=== PATIENT | male | born 2000 | race Caucasian/White ===

== ENCOUNTER 2019-12-21 16:08 | Emergency (ER) | payer BC, OTHER ==
[~2019-12-21] VITALS: Ht 182.9 cm; Wt 78.6 kg
[2019-12-21] MEDS ORDERED: TETanus/Pertussis (Acell)/Diphther VAC/PF (Tdap-Adult) 0.5ml syringe IMVAC ONE (18:15)
[2019-12-21 18:45] VITALS: BP 112/72
== END 2019-12-21 18:49 | disposition home or self-care (01) ==
LOC: ER 16:09
DX: S61.215A Laceration without foreign body of left ring finger without damage to nail, initial encounter (principal); S61.235A Puncture wound without foreign body of left ring finger without damage to nail, initial encounter; Z88.1 Allergy status to other antibiotic agents; Z88.8 Allergy status to other drugs, medicaments and biological substances; W29.4XXA Contact with nail gun, initial encounter; Y93.89 Activity, other specified; Y92.89 Other specified places as the place of occurrence of the external cause; Y99.8 Other external cause status
CPT/HCPCS: 73130; 90471; 90715; 99283

== ENCOUNTER 2020-01-01 15:30 | Inpatient (IN) | payer OTHER ==
[~2020-01-01] VITALS: Ht 185.4 cm; Wt 78.6 kg
[2020-01-01] MEDS ORDERED: cefTAZidime inj 2 GM in normal saline 100ml IV soln 100 ML IV ONE (16:05)
[2020-01-01] MEDS ORDERED: NO HOME MEDS (16:21)
[2020-01-01] MEDS ORDERED: vancomycin/NS 1 GM ADD-VANTAGE 250 ML X 1 DOSE IV ONE (16:25)
[2020-01-01] MEDS ORDERED: cefepime 1GM in D5W 50mL 50 ML IV SCH (18:25)
[2020-01-01] MEDS ORDERED: magnesium 4gm in 100ml NS 100 ML IV PRN (18:25)
[2020-01-01] MEDS ORDERED: magnesium 2GM in 50ml NS 50 ML IV PRN (18:25)
[2020-01-01] MEDS ORDERED: potassium Cl 20 mEq SR tablet PO PRN ×2 (18:25)
[2020-01-01] MEDS ORDERED: magnesium Cl slow-release 64mg tablet PO PRN (18:25)
[2020-01-01] MEDS ORDERED: morphine 2 MG/ML inj. syringe IV PRN ×2 (18:25)
[2020-01-01] MEDS ORDERED: ondansetron/PF 4mg/2ml inj IV PRN (18:25)
[2020-01-01] MEDS ORDERED: acetaminophen 650mg rectal suppository RC PRN (18:25)
[2020-01-01] MEDS ORDERED: mag hydrox/Alum hydrox/simeth 30ml oral suspension PO PRN (18:25)
[2020-01-01] MEDS ORDERED: diphenhydrAMINE 25mg capsule PO PRN (18:25)
[2020-01-01] MEDS ORDERED: HYDROcodone/acetaminophen 5mg/325mg tablet PO PRN (18:25)
[2020-01-01] MEDS ORDERED: acetaminophen 325mg tablet PO PRN ×2 (18:25)
[2020-01-01] MEDS ORDERED: HYDROcodone/acetaminophen 10/325mg tab PO PRN (18:25)
[2020-01-01] MEDS ORDERED: potassium CL 10mEq/100ml bag 100 ML IV PRN ×2 (18:25)
[2020-01-01] MEDS ORDERED: magnesium hydroxide 30ml (MOM) UD suspension PO PRN (18:25)
[2020-01-01 18:52] LABS: BASOPHILS % (AUTO) 0.3 % (0-1); EOSINOPHILS # (AUTO) 0.1 X10'3 (0-0.9); EOSINOPHILS % (AUTO) 0.7 % (0-6); HEMATOCRIT 46.4 % (42.0-52.0); LYMPHOCYTES % (AUTO) 18.9 % (21-51); MEAN CORPUSCULAR HEMOGLOBIN 27.2 PG (27.0-31.0); MEAN CORPUSCULAR HGB CONC 34.4 g/dL (33.0-36.5); MONOCYTES # (AUTO) 0.8 X10'3 (0-0.9); MONOCYTES % (AUTO) 7.6 % (2-12); NEUTROPHILS # (AUTO) 7.8 X10'3 (1.8-7.7); NEUTROPHILS % (AUTO) 72.5 % (42-75); PLATELET COUNT 239 X10'3 (140-440); RED BLOOD COUNT 5.88 X10'6 (4.70-6.10); RED CELL DISTRIBUTION WIDTH 13.3 % (11.5-14.5); WHITE BLOOD COUNT 10.7 X10'3 (4.5-11.0)
--- NOTE | 2020-01-01 18:55 | NUR ---
Patient in room [facility] 4015. I have received report from Gustavo DE LA ROSA and had the opportunity to ask questions and assume patient care.
[2020-01-01] MEDS ORDERED: cefepime 1GM/NS ADD-VANTAGE 100 ML IV SCH (18:59)
[2020-01-01 19:00] VITALS: BP 143/83
[2020-01-01 19:04] LABS: HEMOGLOBIN A1C 5.3 % (4.5-6.2)
[2020-01-01 19:08] LABS: ALANINE AMINOTRANSFERASE 18 U/L (12-78); ALBUMIN 4.5 G/DL (3.4-5.0); ALBUMIN/GLOBULIN RATIO 1.2 (1.1-1.5); ALKALINE PHOSPHATASE 119 IU/L (20-180); ANION GAP 8 (8-16); ASPARTATE AMINO TRANSFERASE 11 U/L (10-37); BILIRUBIN,TOTAL 0.8 MG/DL (0.1-1.0); BLOOD UREA NITROGEN 12 MG/DL (7-18); BUN/CREATININE RATIO 12.5 (5.4-32.0); CALCIUM 8.9 MG/DL (8.5-10.1); CHLORIDE 103 MMOL/L (99-107); CREATININE 0.96 MG/DL (0.60-1.10); GLUCOSE 97 MG/DL (70-104); MAGNESIUM 2.1 MG/DL (1.5-2.4); POTASSIUM 3.6 MMOL/L (3.5-5.1); SODIUM 138 MMOL/L (135-145); TOTAL CARBON DIOXIDE 27.1 MMOL/L (24-32); TOTAL PROTEIN 8.4 G/DL (6.4-8.2); eGFR > 90 ML/MIN
--- NOTE | 2020-01-01 19:23 | NUR ---
not giving vanco, it was administered already in ER.
[2020-01-01] MEDS: normal saline 1000ml 1,000 ML IV SCH (19:54)
[2020-01-01] MEDS: heparin, porcine 5000 units/ml vial SQ SCH (20:00)
[2020-01-01] MEDS: K and/or MAG REPLACEMENT MC SCH (20:00)
[2020-01-01 22:00] VITALS: BP 115/72
[2020-01-02] MEDS: vancomycin/NS 1 GM ADD-VANTAGE 250 ML IV SCH ×3 (00:23→15:38)
[2020-01-02 01:03] LABS: URINE AMPHETAMINE SCREEN NEGATIVE (Neg); URINE BARBITUATE SCREEN NEGATIVE (Neg); URINE BENZODIAZEPINES SCREEN NEGATIVE (Neg); URINE CANNABINOID SCREEN NEGATIVE (Neg); URINE COCAINE SCREEN NEGATIVE (Neg); URINE METHADONE SCREEN NEGATIVE (Neg); URINE OPIATE SCREEN NEGATIVE (Neg); URINE PHENCYCLIDINE SCREEN NEGATIVE (Neg)
[2020-01-02 01:52] LABS: CLARITY,URINE CLEAR (Clear); COLOR,URINE YELLOW (Yellow); GLUCOSE, URINE NEGATIVE (Neg); KETONES,URINE NEGATIVE (Neg); LEUKOCYTE ESTERASE ,URINE NEGATIVE (Neg); NITRITES, URINE NEGATIVE (Neg); OCCULT BLOOD,URINE NEGATIVE (Neg); PROTEIN,URINE NEGATIVE (Neg); UROBILINOGEN,URINE 0.2 E.U/dL (0.2-1.0)
[2020-01-02 01:53] LABS: UA COLLECTION TYPE CLN CATCH MIDSTREAM
[2020-01-02] MEDS: cefepime 1GM/NS ADD-VANTAGE 100 ML IV SCH ×3 (02:02→17:44)
[2020-01-02 06:00] VITALS: BP 121/77
--- NOTE | 2020-01-02 06:15 | NUR ---
received report from jah caldera
--- NOTE | 2020-01-02 06:25 | NUR ---
Problems reprioritized. Patient report given, questions answered & plan of care reviewed with DAVID DE LA ROSA.
[2020-01-02 06:34] LABS: BASOPHILS % (AUTO) 0.3 % (0-1); EOSINOPHILS # (AUTO) 0.1 X10'3 (0-0.9); EOSINOPHILS % (AUTO) 1.4 % (0-6); HEMATOCRIT 40.8 % (42.0-52.0); LYMPHOCYTES # (AUTO) 1.5 X10'3 (1.1-4.8); LYMPHOCYTES % (AUTO) 22.8 % (21-51); MEAN CORPUSCULAR HEMOGLOBIN 27.1 PG (27.0-31.0); MEAN CORPUSCULAR HGB CONC 34.3 g/dL (33.0-36.5); MEAN PLATELET VOLUME 7.3 FL (7.4-10.4); MONOCYTES # (AUTO) 0.6 X10'3 (0-0.9); MONOCYTES % (AUTO) 9.1 % (2-12); NEUTROPHILS # (AUTO) 4.4 X10'3 (1.8-7.7); NEUTROPHILS % (AUTO) 66.4 % (42-75); PLATELET COUNT 201 X10'3 (140-440); RED BLOOD COUNT 5.17 X10'6 (4.70-6.10); WHITE BLOOD COUNT 6.7 X10'3 (4.5-11.0)
[2020-01-02 06:44] LABS: ALANINE AMINOTRANSFERASE 20 U/L (12-78); ALBUMIN 3.6 G/DL (3.4-5.0); ALBUMIN/GLOBULIN RATIO 1.1 (1.1-1.5); ALKALINE PHOSPHATASE 94 IU/L (20-180); ANION GAP 7 (8-16); ASPARTATE AMINO TRANSFERASE 20 U/L (10-37); BILIRUBIN,TOTAL 0.8 MG/DL (0.1-1.0); BLOOD UREA NITROGEN 11 MG/DL (7-18); BUN/CREATININE RATIO 11.8 (5.4-32.0); CALCIUM 9.3 MG/DL (8.5-10.1); CHLORIDE 106 MMOL/L (99-107); CHOL/HDL RATIO 4.5 (0.00-4.99); CHOLESTEROL 192 MG/DL (0-200); CREATININE 0.93 MG/DL (0.60-1.10); GLUCOSE 102 MG/DL (70-104); HDL CHOLESTEROL 43 MG/DL (35-60); LDL CHOLESTEROL 144 MG/DL (50-100); PHOSPHORUS 3.4 MG/DL (2.3-4.5); POTASSIUM 4.3 MMOL/L (3.5-5.1); SODIUM 139 MMOL/L (135-145); TOTAL CARBON DIOXIDE 26.5 MMOL/L (24-32); TOTAL PROTEIN 6.9 G/DL (6.4-8.2); TRIGLYCERIDES 61 MG/DL (20-135); eGFR > 90 ML/MIN
[2020-01-02] MEDS: K and/or MAG REPLACEMENT MC SCH ×2 (06:55→20:00)
[2020-01-02] MEDS: heparin, porcine 5000 units/ml vial SQ SCH ×2 (07:06→20:00)
[2020-01-02] MEDS: normal saline 1000ml 1,000 ML IV SCH ×2 (07:11→19:18)
[2020-01-02 10:00] VITALS: BP 124/56
--- NOTE | 2020-01-02 11:23 | NUR ---
Student documentation: I have reviewed all interventions, assessments performed and documented by Jac Castrejon
[2020-01-02] MEDS ORDERED: GADOTERATE MEGLUMINE 7.5 MMOL/15 ML VIAL IV ONE (12:02)
[2020-01-02 15:19] VITALS: BP 122/72
[2020-01-02] MEDS ORDERED: VANCOMYCIN LEVEL IV ONE (15:30)
--- NOTE | 2020-01-02 15:48 | NUR ---
Student documentation: I have reviewed assessments performed and documented by Amador PHAN [facility].
[2020-01-02 18:00] VITALS: BP 127/53
--- NOTE | 2020-01-02 18:05 | NUR ---
GAVE REPORT TO ESTRELLA ROGERS
[2020-01-02] MEDS: lactobacillus rhamnosus 10,000 MMU CELLS/CAPSULE PO SCH (20:21)
[2020-01-02 22:00] VITALS: BP 94/58
[2020-01-03] MEDS: vancomycin/NS 1 GM ADD-VANTAGE 250 ML IV SCH (00:15)
[2020-01-03] MEDS: normal saline 1000ml 1,000 ML IV SCH ×3 (00:21→19:50)
[2020-01-03] MEDS: cefepime 1GM/NS ADD-VANTAGE 100 ML IV SCH ×3 (02:12→19:42)
[2020-01-03 06:00] VITALS: BP 144/60
[2020-01-03 07:03] LABS: BASOPHILS % (AUTO) 0.6 % (0-1); EOSINOPHILS # (AUTO) 0.1 X10'3 (0-0.9); EOSINOPHILS % (AUTO) 1.4 % (0-6); HEMATOCRIT 40.9 % (42.0-52.0); HEMOGLOBIN 13.9 g/dl (14.0-17.9); LYMPHOCYTES # (AUTO) 1.6 X10'3 (1.1-4.8); LYMPHOCYTES % (AUTO) 25.6 % (21-51); MEAN CORPUSCULAR HEMOGLOBIN 26.9 PG (27.0-31.0); MEAN CORPUSCULAR HGB CONC 33.9 g/dL (33.0-36.5); MEAN CORPUSCULAR VOLUME 79.5 FL (78-98); MEAN PLATELET VOLUME 7.4 FL (7.4-10.4); MONOCYTES # (AUTO) 0.5 X10'3 (0-0.9); MONOCYTES % (AUTO) 8.5 % (2-12); NEUTROPHILS % (AUTO) 63.9 % (42-75); PLATELET COUNT 195 X10'3 (140-440); RED BLOOD COUNT 5.14 X10'6 (4.70-6.10); RED CELL DISTRIBUTION WIDTH 13.2 % (11.5-14.5); WHITE BLOOD COUNT 6.2 X10'3 (4.5-11.0)
[2020-01-03 07:19] LABS: ALANINE AMINOTRANSFERASE 16 U/L (12-78); ALBUMIN 3.6 G/DL (3.4-5.0); ALKALINE PHOSPHATASE 91 IU/L (20-180); ANION GAP 3 (8-16); ASPARTATE AMINO TRANSFERASE 8 U/L (10-37); BILIRUBIN,TOTAL 0.5 MG/DL (0.1-1.0); BLOOD UREA NITROGEN 11 MG/DL (7-18); BUN/CREATININE RATIO 11.5 (5.4-32.0); CALCIUM 8.8 MG/DL (8.5-10.1); CHLORIDE 106 MMOL/L (99-107); CREATININE 0.96 MG/DL (0.60-1.10); GLUCOSE 100 MG/DL (70-104); PHOSPHORUS 3.3 MG/DL (2.3-4.5); POTASSIUM 4.1 MMOL/L (3.5-5.1); SODIUM 138 MMOL/L (135-145); TOTAL CARBON DIOXIDE 28.8 MMOL/L (24-32); TOTAL PROTEIN 7.1 G/DL (6.4-8.2); eGFR > 90 ML/MIN
[2020-01-03] MEDS: K and/or MAG REPLACEMENT MC SCH ×2 (08:00→20:00)
[2020-01-03] MEDS: heparin, porcine 5000 units/ml vial SQ SCH ×2 (08:00→19:47)
[2020-01-03] MEDS: lactobacillus rhamnosus 10,000 MMU CELLS/CAPSULE PO SCH ×2 (09:04→19:42)
[2020-01-03] MEDS: VANCOmycin 1250MG/NS 250ml Bag 250 ML IV SCH ×2 (09:04→17:04)
[2020-01-03 10:00] VITALS: BP 125/51
[2020-01-03] MEDS ORDERED: LINE600T12 PO (10:11)
[2020-01-03] MEDS ORDERED: LACT1CAP26 PO (10:11)
--- NOTE | 2020-01-03 15:23 | NUR ---
Discharge home today has been cancelled secondary to difficulty obtaining home antibiotics. Will restart PIV and IV abx as ordered.
[2020-01-03 18:00] VITALS: BP 125/59
--- NOTE | 2020-01-03 18:35 | NUR ---
Patient in room [facility]TH[facility] 4015. I have received report from Courtney DE LA ROSA and had the opportunity to ask questions and assume patient care.
[2020-01-03 22:00] VITALS: BP 113/60
[2020-01-04] MEDS: VANCOmycin 1250MG/NS 250ml Bag 250 ML IV SCH ×2 (00:28→08:45)
[2020-01-04] MEDS: cefepime 1GM/NS ADD-VANTAGE 100 ML IV SCH (03:36)
[2020-01-04 06:00] VITALS: BP 124/65
--- NOTE | 2020-01-04 06:50 | NUR ---
Problems reprioritized. Patient report given, questions answered & plan of care reviewed with Courtney DE LA ROSA.
[2020-01-04] MEDS ORDERED: VANCOMYCIN LEVEL IV ONE (07:30)
[2020-01-04 07:51] LABS: ALANINE AMINOTRANSFERASE 21 U/L (12-78); ALBUMIN 3.6 G/DL (3.4-5.0); ALBUMIN/GLOBULIN RATIO 1.1 (1.1-1.5); ALKALINE PHOSPHATASE 88 IU/L (20-180); ANION GAP 5 (8-16); ASPARTATE AMINO TRANSFERASE 11 U/L (10-37); BASOPHILS % (AUTO) 0.4 % (0-1); BILIRUBIN,TOTAL 0.4 MG/DL (0.1-1.0); BLOOD UREA NITROGEN 12 MG/DL (7-18); BUN/CREATININE RATIO 12.5 (5.4-32.0); CHLORIDE 106 MMOL/L (99-107); CREATININE 0.96 MG/DL (0.60-1.10); EOSINOPHILS # (AUTO) 0.1 X10'3 (0-0.9); EOSINOPHILS % (AUTO) 1.2 % (0-6); GLUCOSE 96 MG/DL (70-104); HEMATOCRIT 40.3 % (42.0-52.0); LYMPHOCYTES # (AUTO) 1.5 X10'3 (1.1-4.8); LYMPHOCYTES % (AUTO) 24.4 % (21-51); MAGNESIUM 1.8 MG/DL (1.5-2.4); MEAN CORPUSCULAR HEMOGLOBIN 27.5 PG (27.0-31.0); MEAN CORPUSCULAR HGB CONC 34.8 g/dL (33.0-36.5); MEAN CORPUSCULAR VOLUME 78.9 FL (78-98); MEAN PLATELET VOLUME 7.4 FL (7.4-10.4); MONOCYTES # (AUTO) 0.5 X10'3 (0-0.9); MONOCYTES % (AUTO) 7.8 % (2-12); NEUTROPHILS # (AUTO) 4.2 X10'3 (1.8-7.7); NEUTROPHILS % (AUTO) 66.2 % (42-75); PHOSPHORUS 3.7 MG/DL (2.3-4.5); PLATELET COUNT 192 X10'3 (140-440); POTASSIUM 4.4 MMOL/L (3.5-5.1); RED BLOOD COUNT 5.11 X10'6 (4.70-6.10); RED CELL DISTRIBUTION WIDTH 13.1 % (11.5-14.5); SODIUM 140 MMOL/L (135-145); TOTAL CARBON DIOXIDE 28.8 MMOL/L (24-32); VANCOMYCIN,TROUGH 18.4 UG/ML (6.0-14.0); WHITE BLOOD COUNT 6.3 X10'3 (4.5-11.0); eGFR > 90 ML/MIN
[2020-01-04] MEDS: heparin, porcine 5000 units/ml vial SQ SCH (08:00)
[2020-01-04] MEDS: K and/or MAG REPLACEMENT MC SCH (08:00)
[2020-01-04] MEDS: lactobacillus rhamnosus 10,000 MMU CELLS/CAPSULE PO SCH (08:45)
[2020-01-04] MEDS: normal saline 1000ml 1,000 ML IV SCH (08:48)
[2020-01-04 10:00] VITALS: BP 116/64
== END 2020-01-04 11:50 | disposition home or self-care (01) | DRG 558 ==
LOC: ER 15:31 → ED HOLD 18:21 → EDBEDREQ 18:49 → ORTHO 4S 19:00
PROVIDERS: ADMIT Family Medicine; ATTEND Family Medicine
DX: M65.842 Other synovitis and tenosynovitis, left hand (principal); L02.512 Cutaneous abscess of left hand; L03.012 Cellulitis of left finger; F12.90 Cannabis use, unspecified, uncomplicated; Z88.8 Allergy status to other drugs, medicaments and biological substances
CPT/HCPCS: 36415; 73220; 80053; 80061; 80202; 80305; 81003; 83036; 83605; 83735; 84100; 84145; 85025; 87040; 87081; 99285; A9575; G0378; J0692; J0713; J3370; J7030

== ENCOUNTER 2020-03-01 17:30 | Emergency (ER) | payer OTHER ==
[~2020-03-01] VITALS: Ht 188 cm; Wt 170.0 kg
[~2020-03-01 17:30] MED LIST: LACT1CAP26 PO
[2020-03-01 18:52] VITALS: BP 138/79
== END 2020-03-01 18:18 | disposition home or self-care (01) ==
LOC: ER 17:30
DX: J06.9 Acute upper respiratory infection, unspecified (principal); R42 Dizziness and giddiness; R19.7 Diarrhea, unspecified; R43.8 Other disturbances of smell and taste; Z20.828 Contact with and (suspected) exposure to other viral communicable diseases; J34.89 Other specified disorders of nose and nasal sinuses; Z72.89 Other problems related to lifestyle; Z88.1 Allergy status to other antibiotic agents; Z88.8 Allergy status to other drugs, medicaments and biological substances; Z79.899 Other long term (current) drug therapy
CPT/HCPCS: 36415; 87635; 99283